=== PATIENT | female | born 1950 | race American Indian/Alaskan Native ===

== ENCOUNTER 2017-07-20 09:55 | Outpatient (CLI) | payer MEDICAID, MEDICARE ==
--- NOTE | 2017-07-20 13:38 | Ultrasound Report ---
Bilateral mammogram and right breast ultrasound: The patient presents for diagnosis based on outside mammography in August 2016 describing a circumscribed lesion in the right breast. The outside images are included on disc. Review of these images are obtained and compared to the current exam. On the current examination the breast pattern is that of intermediate fibroglandular density in a generally symmetric distribution. The left breast pattern is generally unremarkable and unchanged from outside images. The right breast pattern is similar but there is a questionable area of retroareolar densities just superior to the nipple. The overall pattern however appears generally unchanged from the prior exam and it's unclear as to the circumscribed density described since it is not marked on the images. Multiple views of the right breast are formed with no definable circumscribed mass other than the above-mentioned density. The current density is somewhat inhomogeneous and does not appear to be suspicious. Right breast ultrasound demonstrate a couple of slightly dilated retroareolar ducts but is not otherwise remarkable. CAD used. Impression: Stable mammogram with no currently suspicious findings. Recommendation: Annual mammogram followup. BI-RADS CATEGORY: 2 = Benign ACR BI-RADS MAMMOGRAPHIC CODES: 0 = Needs additional imaging evaluation; 1 = Negative; 2 = Benign; 3 = Probably benign; 4 = Suspicious; 5 = Malignant; 6 = Known biopsy-proven malignancy COMMENT: 1. Dense breast tissue, i.e., adenosis, fibrocystic changes, etc., may obscure an underlying neoplasm. 2. Approximately 10% of cancers are not detected with mammography. 3. A negative mammography report should not delay biopsy if a clinically suspicious mass is present.
== END 2017-07-20 09:56 | disposition home or self-care (01) ==
LOC: MAMMO 09:55
PROVIDERS: ATTEND Internal Medicine
DX: R92.2 Inconclusive mammogram (principal)